=== PATIENT | male | born 2000 | race African-American/Black ===

== ENCOUNTER 2018-11-21 21:44 | Emergency (ER) | payer MEDICAID, OTHER ==
[~2018-11-21] VITALS: Ht 172.7 cm; Wt 69.0 kg
[~2018-11-21 21:44] MED LIST: ALBU2.5V13 IH; MONT10TA21 PO
[2018-11-21] MEDS ORDERED: IPRATROPIUM BROMIDE (0.02%) 0.5MG/2.5ML NEB HHN STA (22:35)
[2018-11-21] MEDS ORDERED: METHYLPREDNISOLONE SOD SUCC 125 MG/2 ML VIAL IV STA (22:35)
[2018-11-21] MEDS ORDERED: ALBUTEROL (0.083%) 2.5MG/3ML NEB HHN STA (22:35)
[2018-11-22 01:29] VITALS: BP 130/68
== END 2018-11-22 01:32 | disposition home or self-care (01) ==
LOC: ER 21:44
DX: J45.901 Unspecified asthma with (acute) exacerbation (principal); Z91.010 Allergy to peanuts; Z79.899 Other long term (current) drug therapy
CPT/HCPCS: 71045; 93005; 94640; 96374; 99283; J2930; J7611; Z7610